=== PATIENT | female | born 1965 | race Caucasian/White ===

== ENCOUNTER 2017-03-11 01:52 | Emergency (ER) | payer OTHER ==
[~2017-03-11] VITALS: Ht 167.6 cm; Wt 81.7 kg
[~2017-03-11 01:52] MED LIST: ASPIR 8181 MG PO; CIPROFLOXACIN500 M1 PO; EFFEXOR XR150 MG PO; EFFEXOR XR75 MG PO; LAMICTAL100 MG PO; LAMOTRIGINE100 M1 PO; METFORMIN HCL500 MG PO; NICOTINE PATCH1 EAC1; NOVOLOG100 UNIT/1 SUBQ; VENLAFAXINE HC150 MG PO
[2017-03-11 02:10] LABS: URINE BILIRUBIN NEGATIVE (Negative); URINE BLOOD NEGATIVE (Negative); URINE CLARITY CLEAR; URINE COLOR YELLOW; URINE GLUCOSE-RANDOM 2+ (Negative); URINE KETONES 1+ (Negative); URINE LEUKOCYTES-REFLEX NEGATIVE (Negative); URINE NITRITE-REFLEX NEGATIVE (Negative); URINE PROTEIN TRACE (Negative); URINE SPECIFIC GRAVITY 1.025 (1.005-1.030); URINE UROBILINOGEN 0.2 E.U./dl (0.2-1.0)
[2017-03-11 02:12] LABS: ABSOLUTE BASOPHILS 0.1 thou/uL (0.0-0.2); ABSOLUTE EOSINOPHILS 0.2 thou/uL (0.0-0.7); ABSOLUTE LYMPHOCYTES 3.9 thou/uL (0.8-5.3); ABSOLUTE MONOCYTES 0.8 thou/uL (0.0-1.2); ABSOLUTE NEUTROPHILS 5.4 thou/uL (1.6-8.1); BASOPHILS 0.7 %; EOSINOPHILS 2.1 %; HEMATOCRIT 44.7 % (37.0-47.0); LYMPHOCYTES 37.7 %; MCH 28.2 pg (26.0-34.0); MCHC 33.5 g/dL (28.0-37.0); MONOCYTES 7.7 %; MPV 7.2 fl. (7.2-11.1); NUCLEATED RBCS 0 /100WBC; PLATELET COUNT* 412 thou/uL (150-400); POLYS 51.8 %; RBC 5.32 mil/uL (4.20-5.00); RDW-CV 13.1 % (10.5-14.5); WBC 10.4 thou/uL (4.0-11.0)
[2017-03-11 02:23] LABS: APTT 27.1 Seconds (25.0-31.3); CALCIUM 8.8 mg/dL (8.5-10.1); CREATININE 0.9 mg/dL (0.6-1.3); POTASSIUM 4.1 mmol/L (3.5-5.1)
[2017-03-11 02:34] LABS: ALBUMIN 3.3 g/dL (3.4-5.0); TOTAL BILIRUBIN 0.2 mg/dL (<0.1-1.0); TOTAL PROTEIN 7.4 g/dL (6.4-8.2)
[2017-03-11 03:00] VITALS: BP 143/70
--- NOTE | 2017-03-11 10:28 | EKG ---
[place] [address] ELECTROCARDIOGRAM REPORT Name: REYNA GILES Room: [facility]#: [id number] Admission: 03/11/17 Attend Phys: Discharge: 03/11/17 Date of : 69 Report #: [id number] THIS REPORT FOR: //name// [facility] ED Test Date: 2017-03-11 Test Time: 02:08:09 Pat Name: REYNA GILES Department: Room: Gender: F Technical Sales Specialist: FERN Villagran : 1965 Requested By: Navid Martino Order Number: [id number] MD: Scot Avila Measurements Intervals [place] Rate: 85 P: 4 [place]: 148 QRS: 66 QRSD: 94 T: 50 QT: 349 QTc: 415 Interpretive Statements Sinus rhythm Low voltage, precordial leads ST elev, probable normal early repol pattern Baseline wander in lead(s) II,III,aVL,aVF,V3,V5 Compared to ECG 07/18/2013 15:35:59 Low QRS voltage now present Right-axis deviation no longer present Electronically Signed On 03-11-2017 10:28:10 [employer] by Scot Avila [email or web address] <ELECTRONICALLY SIGNED> By: Scot Avila MD, FACC 03/11/17 1028 7 7 cSot Avila MD, FAC /EPI
== END 2017-03-11 03:01 | disposition home or self-care (01) ==
LOC: M.ERS 01:52
PROVIDERS: Family Medicine
DX: R53.1 Weakness (principal); E11.9 Type 2 diabetes mellitus without complications; F31.9 Bipolar disorder, unspecified; F17.210 Nicotine dependence, cigarettes, uncomplicated; Z79.4 Long term (current) use of insulin

== ENCOUNTER 2018-11-11 15:27 | Emergency (ER) | payer OTHER ==
[~2018-11-11] VITALS: Ht 167.6 cm; Wt 79.4 kg
[2018-11-11] MEDS ORDERED: TRAZODONE HCL100 MG PO (15:35)
[2018-11-11] MEDS ORDERED: MOBIC15 MG PO (16:55)
[2018-11-11 17:04] VITALS: BP 130/72
== END 2018-11-11 17:04 | disposition home or self-care (01) ==
LOC: M.ERS 15:27
DX: M25.461 Effusion, right knee (principal); M25.561 Pain in right knee; E11.9 Type 2 diabetes mellitus without complications; F31.9 Bipolar disorder, unspecified; Z98.51 Tubal ligation status; Z79.4 Long term (current) use of insulin

== ENCOUNTER 2019-07-25 02:48 | Emergency (ER) | payer OTHER ==
[~2019-07-25] VITALS: Ht 167.6 cm; Wt 78.0 kg
[~2019-07-25 02:48] MED LIST changes: +MOBIC15 MG PO; +TRAZODONE HCL100 MG PO
[2019-07-25] MEDS ORDERED: TORADOL 10 MG T10 MG PO (04:11)
[2019-07-25] MEDS ORDERED: DIAZEPAM 5 MG5 M1 PO (04:11)
[2019-07-25 04:39] VITALS: BP 148/66
== END 2019-07-25 04:43 | disposition home or self-care (01) ==
LOC: M.ERS 02:48
DX: S50.12XA Contusion of left forearm, initial encounter (principal); S00.03XA Contusion of scalp, initial encounter; M54.2 Cervicalgia; E11.9 Type 2 diabetes mellitus without complications; F17.210 Nicotine dependence, cigarettes, uncomplicated; Z98.51 Tubal ligation status; W18.39XA Other fall on same level, initial encounter; Y93.89 Activity, other specified; Y92.89 Other specified places as the place of occurrence of the external cause; Y99.0 Civilian activity done for income or pay

== ENCOUNTER → 2020-08-17 | Outpatient (CLI) | payer OTHER ==
[~2020-08-17] MED LIST changes: +DIAZEPAM 5 MG5 M1 PO; +TORADOL 10 MG T10 MG PO
== END ==
LOC: M.CT 13:01
PROVIDERS: ATTEND Family Medicine
DX: M25.78 Osteophyte, vertebrae (principal); Z72.0 Tobacco use